=== PATIENT | male | born 1955 | race Caucasian/White ===

== ENCOUNTER → 2018-07-24 07:12 | Outpatient (CLI) | payer OTHER | END | disposition home or self-care (01) | LOC: D.US 07:12 | DX: R74.8 Abnormal levels of other serum enzymes (principal) ==

== ENCOUNTER → 2019-02-13 16:13 | Outpatient (CLI) | payer OTHER | END | disposition home or self-care (01) | LOC: D.US 16:00 | PROVIDERS: ATTEND Emergency Medicine | DX: R22.41 Localized swelling, mass and lump, right lower limb (principal) ==